=== PATIENT | male | born 1980 | race Caucasian/White ===

== ENCOUNTER 2017-08-13 20:10 | Emergency (ER) | payer BC | END 2017-08-13 21:23 | disposition home or self-care (01) | LOC: D.ER 20:10 | DX: T23.151A Burn of first degree of right palm, initial encounter (principal); T23.171A Burn of first degree of right wrist, initial encounter; T31.0 Burns involving less than 10% of body surface; X08.8XXA Exposure to other specified smoke, fire and flames, initial encounter; Y93.89 Activity, other specified; Y92.89 Other specified places as the place of occurrence of the external cause; F17.200 Nicotine dependence, unspecified, uncomplicated ==

== ENCOUNTER 2018-01-10 17:28 | Emergency (ER) | payer SELFPAY ==
[~2018-01-10] VITALS: Ht 170.2 cm; Wt 65.0 kg
[2018-01-10 17:38] VITALS: Ht 170.2 cm; Wt 65.0 kg
[2018-01-10] MEDS ORDERED: CLEOCIN HCL300 MG PO (20:23)
[2018-01-10 20:51] VITALS: BP 135/84
== END 2018-01-10 20:52 | disposition home or self-care (01) ==
LOC: D.ER 17:28
DX: L01.00 Impetigo, unspecified (principal); L03.114 Cellulitis of left upper limb; L03.113 Cellulitis of right upper limb; L03.221 Cellulitis of neck; L03.313 Cellulitis of chest wall; F17.200 Nicotine dependence, unspecified, uncomplicated

== ENCOUNTER 2018-04-04 00:29 | Emergency (ER) | payer MEDICAID ==
[~2018-04-04] VITALS: Ht 170.2 cm; Wt 62.7 kg
[~2018-04-04 00:29] MED LIST: CLEOCIN HCL300 MG PO
[2018-04-04 00:32] VITALS: Ht 170.2 cm; Wt 62.7 kg
[2018-04-04 01:09] VITALS: BP 148/88
== END 2018-04-04 01:06 | disposition home or self-care (01) ==
LOC: D.ER 00:29
DX: S61.343A Puncture wound with foreign body of left middle finger with damage to nail, initial encounter (principal); W26.8XXA Contact with other sharp object(s), not elsewhere classified, initial encounter; Y93.89 Activity, other specified; Y92.019 Unspecified place in single-family (private) house as the place of occurrence of the external cause; F17.200 Nicotine dependence, unspecified, uncomplicated

== ENCOUNTER 2018-04-11 19:58 | Emergency (ER) | payer MEDICAID ==
[~2018-04-11] VITALS: Ht 170.2 cm; Wt 62.7 kg
[2018-04-11 20:11] VITALS: Ht 170.2 cm; Wt 62.7 kg
[2018-04-11] MEDS ORDERED: EC-NAPROSYN500 MG PO (21:39)
[2018-04-11] MEDS ORDERED: CLEOCIN HCL300 MG PO (21:39)
[2018-04-11 22:13] VITALS: BP 153/99
== END 2018-04-11 22:15 | disposition home or self-care (01) ==
LOC: D.ER 19:58
DX: S50.01XA Contusion of right elbow, initial encounter (principal); X58.XXXA Exposure to other specified factors, initial encounter; Y93.89 Activity, other specified; Y92.019 Unspecified place in single-family (private) house as the place of occurrence of the external cause; F17.200 Nicotine dependence, unspecified, uncomplicated

== ENCOUNTER 2019-04-07 15:22 | Emergency (ER) | payer MEDICAID ==
[~2019-04-07] VITALS: Ht 170.2 cm; Wt 70.5 kg
[~2019-04-07 15:22] MED LIST changes: +EC-NAPROSYN500 MG PO
[2019-04-07 15:30] VITALS: Ht 170.2 cm; Wt 70.5 kg
[2019-04-07] MEDS ORDERED: KEFLEX500 MG PO (17:21)
[2019-04-07 17:29] VITALS: BP 128/68
== END 2019-04-07 17:30 | disposition home or self-care (01) ==
LOC: D.ER 15:22
DX: S61.411A Laceration without foreign body of right hand, initial encounter (principal); W45.8XXA Other foreign body or object entering through skin, initial encounter

== ENCOUNTER 2019-05-20 23:24 | Emergency (ER) | payer SELFPAY ==
[~2019-05-20] VITALS: Ht 170.2 cm; Wt 68.6 kg
[~2019-05-20 23:24] MED LIST changes: +KEFLEX500 MG PO
[2019-05-20 23:57] VITALS: BP 130/81; Ht 170.2 cm; Wt 68.6 kg
== END 2019-05-21 00:20 | disposition left against medical advice (07) ==
LOC: D.ER 23:24
DX: T63.301A Toxic effect of unspecified spider venom, accidental (unintentional), initial encounter (principal); Y92.9 Unspecified place or not applicable

== ENCOUNTER 2019-12-22 12:11 | Emergency (ER) | payer MEDICAID ==
[~2019-12-22] VITALS: Ht 170.2 cm; Wt 65.9 kg
[2019-12-22 12:18] VITALS: Ht 170.2 cm; Wt 65.9 kg
[2019-12-22] MEDS ORDERED: AUGMENTIN 875-11 TAB PO (12:59)
[2019-12-22 13:03] VITALS: BP 114/52
== END 2019-12-22 13:04 | disposition home or self-care (01) ==
LOC: D.ER 12:11
DX: S61.452A Open bite of left hand, initial encounter (principal); W54.0XXA Bitten by dog, initial encounter; Y93.9 Activity, unspecified; Y92.9 Unspecified place or not applicable

== ENCOUNTER 2020-03-20 14:41 | Emergency (ER) | payer MEDICAID ==
[~2020-03-20 14:41] MED LIST changes: +AUGMENTIN 875-11 TAB PO
[2020-03-20 14:52] VITALS: BP 147/83; Ht 170.2 cm
[2020-03-20] MEDS ORDERED: CLEOCIN HCL300 MG PO (15:57)
== END 2020-03-20 16:03 | disposition home or self-care (01) ==
LOC: D.ER 14:41
DX: S51.812A Laceration without foreign body of left forearm, initial encounter (principal); V29.9XXA Motorcycle rider (driver) (passenger) injured in unspecified traffic accident, initial encounter; Y93.9 Activity, unspecified; Y92.9 Unspecified place or not applicable

== ENCOUNTER 2020-05-14 05:36 | Emergency (ER) | payer MEDICAID ==
[~2020-05-14] VITALS: Ht 170.2 cm; Wt 68.2 kg
[2020-05-14 05:40] VITALS: Ht 170.2 cm; Wt 68.2 kg
[2020-05-14 06:09] VITALS: BP 160/99
== END 2020-05-14 06:11 | disposition home or self-care (01) ==
LOC: D.ER 05:36
DX: S61.012A Laceration without foreign body of left thumb without damage to nail, initial encounter (principal); W26.8XXA Contact with other sharp object(s), not elsewhere classified, initial encounter; Y93.9 Activity, unspecified; Y92.9 Unspecified place or not applicable

== ENCOUNTER 2021-01-07 08:15 | Emergency (ER) | payer OTHER, MEDICAID ==
[~2021-01-07] VITALS: Ht 170.2 cm; Wt 62.3 kg
[2021-01-07 08:25] VITALS: BP 118/91; Ht 170.2 cm; Wt 62.3 kg
[2021-01-07] MEDS ORDERED: CYCLOBENZAPRINE10 MG PO (09:40)
[2021-01-07] MEDS ORDERED: IBUPROFEN800 MG PO (09:40)
[2021-01-07] MEDS ORDERED: ACETAMINOPHEN500 M1 PO (09:40)
== END 2021-01-07 10:02 | disposition home or self-care (01) ==
LOC: D.ER 08:15
DX: H44.3 Other and unspecified degenerative disorders of globe (principal); M79.10 Myalgia, unspecified site; M54.9 Dorsalgia, unspecified; M54.2 Cervicalgia; T14.8XXA Other injury of unspecified body region, initial encounter; J32.9 Chronic sinusitis, unspecified; V89.2XXA Person injured in unspecified motor-vehicle accident, traffic, initial encounter; Y93.9 Activity, unspecified; Y92.9 Unspecified place or not applicable; I10 Essential (primary) hypertension; Z72.0 Tobacco use

== ENCOUNTER 2021-01-13 02:11 | Emergency (ER) | payer MEDICAID ==
[~2021-01-13] VITALS: Ht 170.2 cm; Wt 62.3 kg
[~2021-01-13 02:11] MED LIST changes: +ACETAMINOPHEN500 M1 PO; +CYCLOBENZAPRINE10 MG PO; +IBUPROFEN800 MG PO
[2021-01-13 02:17] VITALS: Ht 170.2 cm; Wt 62.3 kg
[2021-01-13] MEDS ORDERED: CLINDAMYCIN HC300 MG PO (02:23)
[2021-01-13 02:31] VITALS: BP 134/85
== END 2021-01-13 02:34 | disposition home or self-care (01) ==
LOC: D.ER 02:11
DX: L03.114 Cellulitis of left upper limb (principal); I10 Essential (primary) hypertension